=== PATIENT | male | born 1990 | race Caucasian/White ===

== ENCOUNTER 2023-08-06 19:03 | Emergency (ER) | payer OTHER ==
[~2023-08-06] VITALS: Ht 172.7 cm; Wt 176.9 kg
[2023-08-06 19:43] VITALS: BP 173/76
== END 2023-08-06 20:36 | disposition home or self-care (01) ==
LOC: ER 19:03
DX: S80.921A Unspecified superficial injury of right lower leg, initial encounter (principal); L02.415 Cutaneous abscess of right lower limb; X58.XXXA Exposure to other specified factors, initial encounter
CPT/HCPCS: 99282